=== PATIENT | male | born 1950 | race Caucasian/White ===

== ENCOUNTER 2021-11-03 16:10 | Inpatient (IN) | payer MEDICARE ==
[~2021-11-03] VITALS: Ht 182.9 cm; Wt 57.2 kg
[2021-11-03 18:09] LABS: BASOPHIL 0.3 % (0-2); EOSINOPHIL 1.1 % (0-7); HCT 31.7 % (42.0-52.0); LYMPHOCYTE 5.7 % (15-48); MCH 28.5 pg (25.0-31.0); MCHC 31.5 g/dL (32.0-36.0); MCV 90.3 fL (78.0-100.0); MPV 11.3 fL (6.0-9.5); NEUTROPHIL 81.9 % (41-80); NRBC 0; PLT 338 K/uL (150-400); RBC 3.51 M/uL (4.70-6.00); RDW 13.2 % (11.5-14.0); WBC 11.1 K/uL (4.0-10.5)
[2021-11-03 18:43] LABS: INFLUENZA A NAA NEGATIVE (NEGATIVE)
[2021-11-03 18:46] LABS: ALBUMIN 2.1 g/dL (3.4-5.0); BILIRUBIN - TOTAL 0.4 mg/dL (0.2-1.0); BUN/CREAT RATIO (CALC) 21.6 RATIO; CREATININE 2.78 mg/dL (0.67-1.17); GLOBULIN (CALCULATION) 4.8 g/dL; POTASSIUM 4.2 mmol/L (3.5-5.1); TOTAL PROTEIN 6.9 g/dL (6.4-8.2)
[2021-11-03 18:46] LABS: CORONAVIRUS 2019 SARS-COV-2 POSITIVE (NEGATIVE)
[2021-11-03 22:11] LABS: LDH 199 U/L (85-227)
[2021-11-03 22:27] LABS: INR 1.25 (0.9-1.2)
[2021-11-03 22:28] LABS: PTT 47.1 SECONDS (24.4-34.7)
[2021-11-04 07:15] LABS: BASOPHIL 0.2 % (0-2); EOSINOPHIL 2.2 % (0-7); HCT 25.5 % (42.0-52.0); HGB 8.3 g/dl (13.2-18.0); MCH 29.1 pg (25.0-31.0); MCHC 32.5 g/dL (32.0-36.0); MCV 89.5 fL (78.0-100.0); MONOCYTE 10.6 % (0-12); NRBC 0; PLT 284 K/uL (150-400); RBC 2.85 M/uL (4.70-6.00); RDW 13.2 % (11.5-14.0); WBC 9.2 K/uL (4.0-10.5)
[2021-11-04 08:07] LABS: ALBUMIN 1.7 g/dL (3.4-5.0); ALKALINE PHOSHATASE 117 U/L (46-116); ALT 54 U/L (16-63); AST 58 U/L (15-37); BILIRUBIN - TOTAL 0.4 mg/dL (0.2-1.0); BUN 50 mg/dL (7-18); BUN/CREAT RATIO (CALC) 20.7 RATIO; C-REACTIVE PROTEIN >18.00 mg/dL (<=0.90); CHLORIDE 112 mmol/L (98-107); CO2 (BICARBONATE) 17 mmol/L (21-32); CREATININE 2.42 mg/dL (0.67-1.17); GLOBULIN (CALCULATION) 3.4 g/dL; GLUCOSE 96 mg/dL (74-106); LDH 149 U/L (85-227); PHOSPHORUS 3.2 mg/dL (2.6-4.7); POTASSIUM 4.1 mmol/L (3.5-5.1); TOTAL PROTEIN 5.1 g/dL (6.4-8.2)
--- NOTE | 2021-11-04 08:34 | NUR ---
RN ATTEMPTED TO GIVE PT PILLS. PT STATED "TOO DAMN MANY. I CAN'T TAKE THAT MANY". RN EDUCATED THAT THEY COULD BE TAKEN A FEW AT AT TIME IF IT WAS EASIER OR THEY COULD BE CRUSHED IF NEEDED. PT CONTINUED TO STATE "TOO DAMN MANY" AND REFUSED TO TAKE MEDICATIONS. PILLS WERE WASTED
--- NOTE | 2021-11-04 14:40 | NUR ---
11/04/21 Lauren Acuna, [facility], called to report: Mr. Bro will not be accepted back at [facility] because family has not applied for Medicaid nor have they paid to hold the bed. - Latisha Strong, daughter, , stated that she is unable to care for her father or assist in any way because of personal issues. A voicemail was left for Melida Watkins, daughter, .
[2021-11-05 06:43] LABS: BASOPHIL 0.2 % (0-2); EOSINOPHIL 0 % (0-7); HCT 25.8 % (42.0-52.0); HGB 8.2 g/dl (13.2-18.0); MCHC 31.8 g/dL (32.0-36.0); MCV 91.2 fL (78.0-100.0); MONOCYTE 8.4 % (0-12); MPV 10.7 fL (6.0-9.5); NEUTROPHIL 80.9 % (41-80); NRBC 0; PLT 337 K/uL (150-400); RBC 2.83 M/uL (4.70-6.00); RDW 13.4 % (11.5-14.0); WBC 10.5 K/uL (4.0-10.5)
[2021-11-05 07:34] LABS: BUN/CREAT RATIO (CALC) 19.2 RATIO; CREATININE 2.34 mg/dL (0.67-1.17); POTASSIUM 4.2 mmol/L (3.5-5.1)
[2021-11-06 07:26] LABS: BASOPHIL 0.2 % (0-2); EOSINOPHIL 1.4 % (0-7); HCT 25.9 % (42.0-52.0); HGB 8.4 g/dl (13.2-18.0); LYMPHOCYTE 13.8 % (15-48); MCH 29.2 pg (25.0-31.0); MCHC 32.4 g/dL (32.0-36.0); MCV 89.9 fL (78.0-100.0); MONOCYTE 9.2 % (0-12); MPV 10.5 fL (6.0-9.5); NRBC 0; PLT 345 K/uL (150-400); RBC 2.88 M/uL (4.70-6.00); RDW 13.7 % (11.5-14.0); WBC 8.7 K/uL (4.0-10.5)
[2021-11-06 08:04] LABS: BUN/CREAT RATIO (CALC) 18.1 RATIO; CREATININE 2.38 mg/dL (0.67-1.17); POTASSIUM 4.1 mmol/L (3.5-5.1)
[2021-11-06] MEDS ORDERED: DIVALPROEX SOD125 MG PO (09:58)
[2021-11-06] MEDS ORDERED: NIFEREX150 MG PO (09:58)
[2021-11-06] MEDS ORDERED: CELEXA20 MG PO (09:58)
[2021-11-06] MEDS ORDERED: APRESOLINE100 MG PO (09:58)
[2021-11-06] MEDS ORDERED: PANTOPRAZOLE SO40 MG PO (09:58)
[2021-11-06] MEDS ORDERED: NORVASC5 MG PO (09:58)
[2021-11-06] MEDS ORDERED: CARVEDILOL12.5 MG PO (09:58)
[2021-11-06] MEDS ORDERED: LIPITOR40 MG PO (09:58)
--- NOTE | 2021-11-06 11:42 | NUR ---
1000 NOTIFED THE DAUGHTER PATRICIA MENDOSA OF THE POSSIBLE DISCHARGE HOME TODAY. DAUGHTER REPORTS THAT SHE IS UNABLE TO CARE FOR HIM AT HOME AND REQUEST THAT HE BE PLACED IN [facility] IN [place] NEAR HER HOME. TRASNFERED THE CALL TO PORSHA MCCAIN AND GAVE THE DAUGHTER MIMI MCCAIN INFORMATION ABOUT HOW TO GET A HOLD OF HER. DR. MONTESINOS ALSO NOTIFED OF THE DAUGHTER DECISION.
--- NOTE | 2021-11-11 16:23 | NUR ---
11/11/21 Referrals have been made to 42 nursing facilities. Denials are being received due to: no admissions due to COVID, no staffing, do not have LTC beds, or will not accept Medicaid pending.
[2021-11-12 07:46] LABS: BUN/CREAT RATIO (CALC) 14.1 RATIO; CREATININE 2.06 mg/dL (0.67-1.17); POTASSIUM 3.7 mmol/L (3.5-5.1)
[2021-11-12 07:48] LABS: BASOPHIL 0.5 % (0-2); EOSINOPHIL 2.4 % (0-7); HCT 28.3 % (42.0-52.0); LYMPHOCYTE 9.8 % (15-48); MCH 28.9 pg (25.0-31.0); MCHC 31.8 g/dL (32.0-36.0); MONOCYTE 8.5 % (0-12); MPV 11.1 fL (6.0-9.5); NEUTROPHIL 77.9 % (41-80); NRBC 0; PLT 356 K/uL (150-400); RBC 3.11 M/uL (4.70-6.00); RDW 13.7 % (11.5-14.0)
[2021-11-15 06:42] LABS: BUN/CREAT RATIO (CALC) 14.1 RATIO; CREATININE 2.06 mg/dL (0.67-1.17); POTASSIUM 3.8 mmol/L (3.5-5.1)
[2021-11-15 06:44] LABS: BASOPHIL 0.8 % (0-2); EOSINOPHIL 3.1 % (0-7); HCT 26.1 % (42.0-52.0); HGB 8.3 g/dl (13.2-18.0); LYMPHOCYTE 15.2 % (15-48); MCHC 31.8 g/dL (32.0-36.0); MCV 91.3 fL (78.0-100.0); MONOCYTE 9.6 % (0-12); MPV 11.5 fL (6.0-9.5); NEUTROPHIL 70.7 % (41-80); NRBC 0; PLT 293 K/uL (150-400); RBC 2.86 M/uL (4.70-6.00); RDW 13.9 % (11.5-14.0); WBC 9.9 K/uL (4.0-10.5)
--- NOTE | 2021-11-16 14:25 | NUR ---
11/16/21 82 Nursing homes have been contacted todate.
--- NOTE | 2021-11-20 13:28 | NUR ---
11/20/21 [facility] has accepted patient for admission on 11/23/21. EMS will be required for transport. Melida Watkins, daughter, accepted the placement. Please call report to Birgit at and fax DS to: . Report given to Emely GRAHAM RN and Dr. Leos.
== END 2021-11-23 12:41 | DRG 177 ==
LOC: FER 16:10 → EDSEX 16:10 → FMS 20:49
PROVIDERS: Allergy & Immunology Allergy; Emergency Medicine; Family Medicine; Nurse Practitioner; ADMIT Internal Medicine
PROC: 8E0ZXY6 Isolation (ICD-10-PCS; principal; 2021-11-03)
DX: U07.1 COVID-19 (principal); J12.82 Pneumonia due to coronavirus disease 2019; E86.0 Dehydration; I12.9 Hypertensive chronic kidney disease with stage 1 through stage 4 chronic kidney disease, or unspecified chronic kidney disease; N18.30 Chronic kidney disease, stage 3 unspecified; F03.90 Unspecified dementia, unspecified severity, without behavioral disturbance, psychotic disturbance, mood disturbance, and anxiety; K21.9 Gastro-esophageal reflux disease without esophagitis; F41.1 Generalized anxiety disorder; E78.5 Hyperlipidemia, unspecified; M54.50 Low back pain, unspecified; Z79.899 Other long term (current) drug therapy
CPT/HCPCS: 36415; 36600; 71045; 80048; 80053; 82728; 82803; 83605; 83615; 83735; 84100; 84145; 85025; 85610; 85730; 86140; 94010; 94640; 94760; 94762; 97161; 97162; 97166; 97530-GP; 97535; J1100; J1650; J2405; J7030; U0002